=== PATIENT | female | born 2000 | race Caucasian/White ===

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

== ENCOUNTER 2020-02-08 13:00 | Inpatient (IN) | payer OTHER ==
[~2020-02-08] VITALS: Ht 167.6 cm; Wt 78.0 kg
[2020-02-17] MEDS ORDERED: COLACE100 MG PO (11:35)
[2020-02-17] MEDS ORDERED: FEOSOL325 MG PO (11:35)
[2020-02-17] MEDS ORDERED: VITAMIN C500 M6 PO (11:36)
[2020-02-17] MEDS ORDERED: KEFLEX500 MG PO (11:36)
== END 2020-02-17 15:58 | disposition home or self-care (01) | DRG 807 ==
LOC: OB/GYN 02-15 05:43 → LDR 02-15 05:43 → OB/GYN 02-15 13:00
PROVIDERS: ADMIT Obstetrics & Gynecology; ATTEND Obstetrics & Gynecology
PROC: 10E0XZZ Delivery of Products of Conception, External Approach (ICD-10-PCS; principal; 2020-02-15)
PROC: 0UQMXZZ Repair Vulva, External Approach (ICD-10-PCS; 2020-02-15)
PROC: 3E033VJ Introduction of Other Hormone into Peripheral Vein, Percutaneous Approach (ICD-10-PCS; 2020-02-15)
PROC: 10907ZC Drainage of Amniotic Fluid, Therapeutic from Products of Conception, Via Natural or Artificial Opening (ICD-10-PCS; 2020-02-15)
PROC: 4A1HXFZ Monitoring of Products of Conception, Cardiac Rhythm, External Approach (ICD-10-PCS; 2020-02-15)
DX: O71.82 Other specified trauma to perineum and vulva (principal); Z37.0 Single live birth; O90.81 Anemia of the puerperium; D64.9 Anemia, unspecified; Z3A.39 39 weeks gestation of pregnancy; Z20.828 Contact with and (suspected) exposure to other viral communicable diseases

== ENCOUNTER 2023-01-22 12:07 | Outpatient (CLI) | payer OTHER ==
[~2023-01-22 12:07] MED LIST: COLACE100 MG PO; FEOSOL325 MG PO; KEFLEX500 MG PO; VITAMIN C500 M6 PO
== END 2023-01-22 12:12 | disposition home or self-care (01) ==
LOC: PRENATAL 12:07
PROVIDERS: ATTEND Obstetrics & Gynecology Maternal & Fetal Medicine
DX: O36.80X0 Pregnancy with inconclusive fetal viability, not applicable or unspecified (principal); Z36.82 Encounter for antenatal screening for nuchal translucency; Z3A.12 12 weeks gestation of pregnancy

== ENCOUNTER → 2023-03-08 | Emergency (ER) | payer OTHER ==
[~2023-03-08] VITALS: Ht 167.6 cm; Wt 66.7 kg
== END | disposition left against medical advice (07) ==
LOC: ER 23:55
DX: Z53.21 Procedure and treatment not carried out due to patient leaving prior to being seen by health care provider (principal)

== ENCOUNTER 2023-03-15 15:23 | Outpatient (CLI) | payer OTHER | END 2023-03-15 15:24 | disposition home or self-care (01) | LOC: PRENATAL 15:23 | PROVIDERS: ATTEND Obstetrics & Gynecology Maternal & Fetal Medicine | DX: O35.9XX0 Maternal care for (suspected) fetal abnormality and damage, unspecified, not applicable or unspecified (principal); O35.3XX0 Maternal care for (suspected) damage to fetus from viral disease in mother, not applicable or unspecified; O44.00 Complete placenta previa NOS or without hemorrhage, unspecified trimester; O36.5990 Maternal care for other known or suspected poor fetal growth, unspecified trimester, not applicable or unspecified; Z3A.19 19 weeks gestation of pregnancy ==

== ENCOUNTER → 2023-04-10 09:51 | Outpatient (CLI) | payer OTHER | END | disposition home or self-care (01) | LOC: PRENATAL 09:51 | PROVIDERS: ATTEND Obstetrics & Gynecology Maternal & Fetal Medicine | DX: O26.849 Uterine size-date discrepancy, unspecified trimester (principal); O36.5990 Maternal care for other known or suspected poor fetal growth, unspecified trimester, not applicable or unspecified; O43.90 Unspecified placental disorder, unspecified trimester; O60.00 Preterm labor without delivery, unspecified trimester; Z3A.23 23 weeks gestation of pregnancy ==

== ENCOUNTER 2023-04-10 11:57 | Outpatient (CLI) | payer OTHER | END 2023-04-10 12:05 | disposition home or self-care (01) | LOC: LAB 11:57 | PROVIDERS: ATTEND Obstetrics & Gynecology Maternal & Fetal Medicine | DX: O28.5 Abnormal chromosomal and genetic finding on antenatal screening of mother (principal); O28.3 Abnormal ultrasonic finding on antenatal screening of mother ==

== ENCOUNTER 2023-05-01 09:54 | Outpatient (CLI) | payer OTHER | END 2023-05-01 09:55 | disposition home or self-care (01) | LOC: PRENATAL 09:54 | PROVIDERS: ATTEND Obstetrics & Gynecology Maternal & Fetal Medicine | DX: O26.849 Uterine size-date discrepancy, unspecified trimester (principal); O36.5990 Maternal care for other known or suspected poor fetal growth, unspecified trimester, not applicable or unspecified; O43.90 Unspecified placental disorder, unspecified trimester; O60.00 Preterm labor without delivery, unspecified trimester; Z3A.26 26 weeks gestation of pregnancy ==

== ENCOUNTER 2023-05-24 11:07 | Outpatient (CLI) | payer OTHER | END 2023-05-24 11:08 | disposition home or self-care (01) | LOC: PRENATAL 11:07 | PROVIDERS: ATTEND Obstetrics & Gynecology Maternal & Fetal Medicine | DX: O26.849 Uterine size-date discrepancy, unspecified trimester (principal); O36.5999 Maternal care for other known or suspected poor fetal growth, unspecified trimester, other fetus; O36.8199 Decreased fetal movements, unspecified trimester, other fetus; Z3A.29 29 weeks gestation of pregnancy ==